=== PATIENT | female | born 1985 | race American Indian/Alaskan Native ===

== ENCOUNTER 2017-05-02 18:48 | Emergency (ER) | payer SELFPAY ==
[2017-05-02 18:53] VITALS: BMI 35.0
[2017-05-02 18:58] VITALS: TEMP 98.7; O2SAT 99
--- NOTE | 2017-05-02 19:35 | ED PDOC ---
Arrival/HPI - General Chief Complaint: Back Pain Time Seen by Provider: 05/02/17 19:25 Historian: Patient - History of Present Illness Narrative History of Present Illness (Text): 05/02/17 19:32 32-year-old female presents today with lower back pain and stiffness since last night. Patient denies any trauma or injury. Patient states she she noticed slight pain in the back last night before she went to bed. Patient states when she woke up this morning she felt as stiffness and achy pain in the lower back which was worse with ambulation and movement. She denies numbness weakness or tingling in the lower extremities. Denies abdominal pain. Denies bladder or bowel incontinence. Denies fevers or chills. Denies urinary symptoms. Patient states she took a Motrin this morning for pain without improvement in her symptoms. Time/Duration: Other (1 day) Symptom Onset: Gradual Symptom Course: Worsening Quality: Aching, Tightness Severity Level: 6 Past Medical History - Provider Review Nursing Documentation Reviewed: Yes - Travel History Have you recently traveled outside [place] w/in the past 3 mons?: No - Infectious Disease Hx of Infectious Diseases: None - Tetanus Immunization Tetanus Immunization: Unknown - Cardiac Hx Cardiac Disorders: No - Pulmonary Hx Respiratory Disorders: Yes Hx Bronchitis: Yes - Neurological Hx Neurological Disorder: No - HEENT Hx HEENT Disorder: No - Renal Hx Renal Disorder: No - Endocrine/Metabolic Hx Endocrine Disorders: No - Hematological/Oncological Hx Blood Disorders: No - Integumentary Hx Dermatological Disorder: No - Musculoskeletal/Rheumatological Hx Musculoskeletal Disorders: No - Gastrointestinal Hx Gastrointestinal Disorders: No - Genitourinary/Gynecological Hx Genitourinary Disorders: No - Psychiatric Hx Psychophysiologic Disorder: No Hx Substance Use: No - Surgical History Hx Section: Yes (x2) - Anesthesia Hx Anesthesia: Yes Hx Anesthesia Reactions: No Hx Malignant Hyperthermia: No Family/Social History - Physician Review Nursing Documentation Reviewed: Yes Family/Social History: Unknown Family HX Smoking Status: Heavy Smoker > 10 Cigarettes Daily Hx Alcohol Use: No Hx Substance Use: No Allergies/Home Meds Allergies/Adverse Reactions: Allergies No Known Allergies Allergy (Verified 05/02/17 18:53) Review of Systems - Review of Systems Constitutional: absent: Fatigue, Fevers Respiratory: absent: SOB, Cough Cardiovascular: absent: Chest Pain, Palpitations Gastrointestinal: absent: Abdominal Pain, Nausea, Vomiting Musculoskeletal: Back Pain. absent: Arthralgias, Neck Pain Skin: absent: Rash, Pruritis Neurological: absent: Headache, Dizziness Physical Exam Vital Signs Reviewed: Yes Vital Signs Temp Pulse Resp BP Pulse Ox 05/02/17 18:55 98.7 F 81 15 146/96 H 99 Temperature: Afebrile Blood Pressure: Hypertensive Pulse: Regular Respiratory Rate: Normal Appearance: Positive for: Well-Appearing, Non-Toxic, Comfortable Pain Distress: None Mental Status: Positive for: Alert and Oriented X 3 - Systems Exam Head: Present: Atraumatic Mouth: Present: Moist Mucous Membranes Respiratory/Chest: Present: Clear to Auscultation, Good Air Exchange. No: Respiratory Distress, Accessory Muscle Use Cardiovascular: Present: Regular Rate and Rhythm, Normal S1, S2. No: Murmurs Abdomen: No: Tenderness Back: Present: Normal Inspection, Paraspinal Tenderness (+ bilateral paraspinal tenderness of lower lumbar region; no edema; no erythema, no ecchymosis; no midline tenderness; stiff full rom of back. ). No: CVA Tenderness, Midline Tenderness Upper Extremity: Present: Normal ROM Lower Extremity: Present: Normal ROM Neurological: Present: GCS=15 Skin: Present: Warm, Dry, Normal Color. No: Rashes Psychiatric: Present: Alert, Oriented x 3 Medical Decision Making ED Course and Treatment: 05/02/17 19:35 Patient nontoxic well-appearing in no distress with stable vital signs. Toradol, Flexeril Patient reassessment: Feeling better with medications ambulating with a steady gait. Muscle strength 5 out of 5 bilaterally. I advised to followup with the orthopedist within the next 2 days. Return if symptoms worsen persist or new symptoms develop Patient verbalizes understanding of discharge instructions and need for immediate followup. Impression: Back pain Motrin every 6 hours as needed for pain Flexeril one tablet every 8 hours as needed for muscle spasms: May cause drowsiness Followup with the orthopedist within the next 2 days Followup with primary care physician within the next 2 days Return if symptoms worsen persist or if new symptoms develop - Medication Orders Current Medication Orders: Discontinued Medications Cyclobenzaprine HCl (Flexeril) 10 mg PO STAT STA Stop: 05/02/17 19:26 Last Admin: 05/02/17 19:35 Dose: 10 mg Ketorolac Tromethamine (Toradol) 60 mg IM STAT STA Stop: 05/02/17 19:26 Last Admin: 05/02/17 19:35 Dose: 60 mg Disposition/Present on Arrival - Present on Arrival Any Indicators Present on Arrival: No History of DVT/PE: No History of Uncontrolled Diabetes: No Urinary Catheter: No History of Decub. Ulcer: No History Surgical Site Infection Following: None - Disposition Have Diagnosis and Disposition been Completed?: Yes Diagnosis: Back pain Disposition: HOME/ ROUTINE Disposition Time: 20:15 Patient Plan: Discharge Condition: GOOD Discharge Instructions (ExitCare): Back Pain (ED) Additional Instructions: Motrin every 6 hours as needed for pain Flexeril one tablet every 8 hours as needed for muscle spasms: May cause drowsiness Followup with the orthopedist within the next 2 days Followup with primary care physician within the next 2 days Return if symptoms worsen persist or if new symptoms develop Prescriptions: Cyclobenzaprine [Cyclobenzaprine HCl] 10 mg PO Q8 #10 tab Ibuprofen [Motrin] 600 mg PO Q6H PRN #20 tab PRN Reason: pain/fever reduction Referrals: Riddhi Cottrell [Primary Care Provider] - Follow up with primary Andry Bui MD [Staff Provider] - Follow up with primary Forms: WORK NOTE
[2017-05-02 20:36] VITALS: BP 144/92; PULSE 78; RESP 16
== END 2017-05-02 20:36 | disposition home or self-care (01) ==
LOC: ED 18:48
DX: M54.5 Low back pain (principal)
CPT/HCPCS: 96372; 99284; J1885

== ENCOUNTER 2017-12-30 16:06 | Emergency (ER) | payer OTHER ==
[2017-12-30 16:10] VITALS: BMI 34.3
[2017-12-30] MEDS ORDERED: Sodium Chloride 0.9% 1,000 ML IV STA (16:29)
--- NOTE | 2017-12-30 16:40 | ED PDOC ---
Arrival/HPI - General Chief Complaint: Abdominal Pain Time Seen by Provider: 12/30/17 16:29 Historian: Patient - History of Present Illness Narrative History of Present Illness (Text): 12/30/17 16:36 32 y/o female, no significant pmh, nkda, c/o nausea/vomiting/diarrhea and abdominal pain after had the fish sandwich last night with no recent traveling for the past 4 weeks. Pt. stated that she had fish sandwich last night, sleeping with epigastric pain and wake up this morning with couple episodes of non-blood and non-bilious vomiting, associated with the couple episodes of watery stool, no recent use of the antibiotics, no palpitation, no chest pain or shortness of breath no rash, no other medical or psychological complaints. Past Medical History - Provider Review Nursing Documentation Reviewed: Yes - Infectious Disease Hx of Infectious Diseases: None - Tetanus Immunization Tetanus Immunization: Unknown - Cardiac Hx Cardiac Disorders: No - Pulmonary Hx Respiratory Disorders: Yes Hx Bronchitis: Yes - Neurological Hx Neurological Disorder: No - HEENT Hx HEENT Disorder: No - Renal Hx Renal Disorder: No - Endocrine/Metabolic Hx Endocrine Disorders: No - Hematological/Oncological Hx Blood Disorders: No - Integumentary Hx Dermatological Disorder: No - Musculoskeletal/Rheumatological Hx Musculoskeletal Disorders: No - Gastrointestinal Hx Gastrointestinal Disorders: No - Genitourinary/Gynecological Hx Genitourinary Disorders: No - Psychiatric Hx Psychophysiologic Disorder: No Hx Substance Use: No - Surgical History Hx Section: Yes (x2) - Anesthesia Hx Anesthesia: Yes Hx Anesthesia Reactions: No Hx Malignant Hyperthermia: No Family/Social History - Physician Review Nursing Documentation Reviewed: Yes Family/Social History: Unknown Family HX Smoking Status: Heavy Smoker > 10 Cigarettes Daily Hx Alcohol Use: No Hx Substance Use: No Allergies/Home Meds Allergies/Adverse Reactions: Allergies No Known Allergies Allergy (Verified 12/30/17 16:11) Review of Systems - Review of Systems Constitutional: absent: Fatigue, Fevers Eyes: absent: Vision Changes ENT: absent: Hearing Changes Respiratory: absent: SOB, Cough Cardiovascular: absent: Chest Pain Gastrointestinal: Abdominal Pain, Diarrhea, Nausea, Vomiting Skin: absent: Rash, Pruritis Neurological: absent: Headache, Dizziness Psychiatric: absent: Anxiety, Depression, Suicidal Ideation Physical Exam Vital Signs Reviewed: Yes Vital Signs Temp Pulse Resp BP Pulse Ox 12/30/17 16:12 97.9 F 70 18 143/71 99 02/22/18 16:11 97.9 F 69 18 143/71 99 Temperature: Afebrile Blood Pressure: Normal Pulse: Regular Respiratory Rate: Normal Appearance: Positive for: Well-Appearing, Non-Toxic, Comfortable Pain Distress: Mild Mental Status: Positive for: Alert and Oriented X 3 - Systems Exam Head: Present: Atraumatic, Normocephalic Pupils: Present: PERRL Extroacular Muscles: Present: EOMI Conjunctiva: Present: Normal Mouth: Present: Moist Mucous Membranes Neck: Present: Normal Range of Motion Respiratory/Chest: Present: Clear to Auscultation, Good Air Exchange. No: Respiratory Distress, Accessory Muscle Use Cardiovascular: Present: Regular Rate and Rhythm, Normal S1, S2. No: Murmurs Abdomen: Present: Normal Bowel Sounds. No: Tenderness, Distention, Peritoneal Signs, Rebound, Guarding Back: Present: Normal Inspection. No: CVA Tenderness, Midline Tenderness, Paraspinal Tenderness Upper Extremity: Present: Normal Inspection. No: Cyanosis, Edema Lower Extremity: Present: Normal Inspection. No: Edema Neurological: Present: GCS=15, Speech Normal, Motor Func Grossly Intact, Gait Normal, Memory Normal Skin: Present: Warm, Dry, Normal Color. No: Rashes Psychiatric: Present: Alert, Oriented x 3, Normal Insight, Normal Concentration Medical Decision Making ED Course and Treatment: 12/30/17 16:40 -labs/lipase/ua/rapid flu -IVF/pepcid/reglan -observe and reassess 12/30/17 17:47 -Urine hcg negative -labs are non-significant except K+ 3.5 (potassium chloride 20meq po ordered), Mg 1.6 (mgsulfate 1gm IV ordered) -UA show no UTI -Pt. feels much better with pain/symptoms resolved, request to be discharged home. -Discharge home with tamiflu, pepcid, zofran, bed rest, stay hydrated, BRAT diet , avoid dairy product for 3 days, return to the ER for any new or worsening signs or symptoms. - Lab Interpretations Lab Results: 12/30/17 16:50 12/30/17 17:20 Lab Results 12/30/17 17:20: Sodium 144, Potassium 3.5 L, Chloride 112 H, Carbon Dioxide 23, Anion Gap 13, BUN 9, Creatinine 0.5 L, Est GFR ( Amer) > 60, Est GFR (Non -Af Amer) > 60, Random Glucose 85, Calcium 7.9 L, Magnesium 1.6 L, Total Bilirubin 0.4, AST 20, ALT 39, Alkaline Phosphatase 45, Total Protein 5.7 L, Albumin 3.3, Globulin 2.5, Albumin/Globulin Ratio 1.3, Lipase 54 12/30/17 17:00: Influenza Typ A,B (EIA) Negative for flu a/b 12/30/17 16:50: WBC 10.1, RBC 4.44, Hgb 14.0, Hct 42.8, MCV 96.4, MCH 31.5, MCHC 32.7, RDW 12.8, Plt Count 350, MPV 9.8, Gran % 57.1, Lymph % (Auto) 37.2 H , [place] % (Auto) 4.7, Eos % (Auto) 0.9 L, Baso % (Auto) 0.1, Gran # 5.75, Lymph # (Auto) 3.8 H, [place] # (Auto) 0.5, Eos # (Auto) 0.1, Baso # (Auto) 0.01 12/30/17 16:34: Urine Color Yellow, Urine Appearance Clear, Urine pH 6.5, Ur Specific [address] 1.020, Urine Protein Trace H, Urine Glucose (UA) Negative, Urine Ketones Trace H, Urine Blood Moderate H, Urine Nitrate Negative, Urine Bilirubin Negative, Urine Urobilinogen 1.0 H, Ur Leukocyte Esterase Negative, Urine RBC 2 - 5, Urine WBC 0 - 2, Ur Epithelial Cells 6 - 8, Urine Bacteria Many - Medication Orders Current Medication Orders: Magnesium Sulfate/Dextrose (Magnesium Sulfate 1 Gm/100 Ml D5w) 1 gm in 100 mls @ 100 mls/hr IVPB ONCE ONE Stop: 12/30/17 18:46 Last Admin: 12/30/17 18:09 Dose: 100 mls/hr eMAR Start Stop Document 12/30/17 18:09 CNR (Rec: 12/30/17 18:10 CNR [id number]) Intravenous Solution Start Date 12/30/17 Start Time 18:10 Discontinued Medications Famotidine (Pepcid) 20 mg IVP STAT STA Stop: 12/30/17 16:30 Last Admin: 12/30/17 16:52 Dose: 20 mg IVP Administration Document 12/30/17 16:52 CNR (Rec: 12/30/17 16:52 CNR [id number]) Charges for Administration # of IVP Administrations 1 Sodium Chloride (Sodium Chloride 0.9%) 1,000 mls @ 999 mls/hr IV .Q1H1M STA Stop: 12/30/17 17:29 Last Admin: 12/30/17 16:51 Dose: 999 mls/hr eMAR Start Stop Document 12/30/17 16:51 CNR (Rec: 12/30/17 16:51 CNR [id number]) Intravenous Solution Start Date 12/30/17 Start Time 16:51 Metoclopramide HCl (Reglan) 10 mg IVP STAT STA Stop: 12/30/17 16:30 Last Admin: 12/30/17 16:52 Dose: 10 mg IVP Administration Document 12/30/17 16:52 CNR (Rec: 12/30/17 16:52 CNR [id number]) Charges for Administration # of IVP Administrations 1 Potassium Chloride (K-Dur 20 Meq Er Tab) 20 meq PO STAT STA Stop: 12/30/17 17:46 Last Admin: 12/30/17 18:10 Dose: 20 meq - PA / SURGERY NURSE / Resident Statement / has reviewed & agrees with the documentation as recorded. Disposition/Present on Arrival - Present on Arrival Any Indicators Present on Arrival: No History of DVT/PE: No History of Uncontrolled Diabetes: No Urinary Catheter: No History of Decub. Ulcer: No History Surgical Site Infection Following: None - Disposition Have Diagnosis and Disposition been Completed?: Yes Diagnosis: Gastroenteritis, Flu-like symptoms, Hypokalemia, Hypomagnesemia Disposition: HOME/ ROUTINE Disposition Time: 16:41 Patient Plan: Discharge Patient Problems: Current Active Problems Problem Status Onset Gastroenteritis Acute Flu-like symptoms Acute Hypokalemia Acute Hypomagnesemia Acute Condition: IMPROVED Discharge Instructions (ExitCare): Gastroenteritis (ED) Additional Instructions: Discharge home with tamiflu, pepcid, zofran, bed rest, stay hydrated, BRAT diet , avoid dairy product for 3 days, return to the ER for any new or worsening signs or symptoms. Prescriptions: Famotidine [Pepcid] 20 mg PO BID PRN #20 tab PRN Reason: Other Ondansetron [Zofran Odt] 4 mg PO TID PRN #12 odt PRN Reason: Other Oseltamivir Phosphate [Tamiflu] 75 mg PO BID #10 capsule Referrals: Riddhi Cottrell [Primary Care Provider] - Follow up with primary Matthew Trevizo MD [Staff Provider] - Follow up with primary Forms: WORK NOTE
[2017-12-30 16:54] LABS: PH,URINE 6.5 (4.7-8.0); URINE BILIRUBIN NEGATIVE (NEGATIVE); URINE BLOOD MODERATE (NEGATIVE); URINE GLUCOSE (UA) NEGATIVE (NEGATIVE); URINE LEUKOCYTE ESTERASE NEGATIVE Leu/uL (NEGATIVE); URINE NITRATE NEGATIVE (NEGATIVE); URINE PROTEIN TRACE mg/dL (<30 mg/dL)
[2017-12-30 16:59] LABS: URINE APPEARANCE CLEAR (CLEAR); URINE COLOR YELLOW (YELLOW)
[2017-12-30 17:18] LABS: BASO # 0.01 K/mm3 (0.0-2.0); BASO % 0.1 % (0.0-3.0); EOS # 0.1 (0.0-0.7); EOS % 0.9 % (1.5-5.0); GRAN # 5.75 (1.4-6.5); GRAN % 57.1 % (50.0-68.0); LYMPH # 3.8 (1.2-3.4); LYMPH % 37.2 % (22.0-35.0); MEAN CELL VOLUME 96.4 fl (80.0-105.0); MEAN CORPUSCULAR HEMOGLOBIN 31.5 pg (25.0-35.0); MEAN CORPUSCULAR HGB CONC 32.7 g/dl (31.0-37.0); MEAN PLATELET VOLUME 9.8 fl (7.0-11.0); MONO # 0.5 (0.1-0.6); MONO % 4.7 % (1.0-6.0); RBC 4.44 10^6/uL (3.5-6.1); RED CELL DISTRIBUTION WIDTH 12.8 % (11.5-14.5); WHITE BLOOD COUNT 10.1 10^3/ul (4.5-11.0)
[2017-12-30 17:39] LABS: ALB/GLOB RATIO 1.3 (1.1-1.8); ALBUMIN 3.3 g/dL (3.0-4.8); ALT/SGPT 39 U/L (7-56); AST/SGOT 20 U/L (14-36); BLOOD UREA NITROGEN 9 mg/dL (7-21); CALCIUM 7.9 mg/dL (8.4-10.5); GFR AFRICAN-AMERICAN > 60; GFR NON-AFRICAN AMERICAN > 60; LIPASE 54 U/L (23-300); MAGNESIUM 1.6 mg/dL (1.7-2.2)
[2017-12-30] MEDS ORDERED: Potassium Chloride 20 mEq ER Tab PO STA (17:45)
[2017-12-30] MEDS ORDERED: Magnesium Sulfate 1 gm in D5W 1 GM/100 ML BAG IVPB ONE (17:47)
[2017-12-30 18:35] LABS: URINE BACTERIA MANY (NEG); URINE WBC 0 - 2 /hpf (0-6)
[2017-12-30 20:00] VITALS: TEMP 98.1
[2017-12-30 20:11] VITALS: BP 140/86; PULSE 82; RESP 16; O2SAT 100
== END 2017-12-30 20:10 | disposition home or self-care (01) ==
LOC: ED 16:06
DX: K52.9 Noninfective gastroenteritis and colitis, unspecified (principal); E87.6 Hypokalemia; E83.42 Hypomagnesemia
CPT/HCPCS: 80053; 81001; 83690; 83735; 85025; 87804; 96374; 96375; 99284; J2765; J3475; J7040